=== PATIENT | male | born 1970 | race Caucasian/White ===

== ENCOUNTER 2018-04-06 11:18 | Day surgery (SDC) | payer BC ==
[2018-04-01 09:24] VITALS: BMI 30.5
[~2018-04-06 11:18] MED LIST: LACTATED RINGERS 1,000 ML IV SCH; LIDOCAINE 1% 20 ML VIAL (10MG/ML) FOR IV START INTRADERMA PRN
[2018-04-06 11:59] VITALS: RESP 16; TEMP 98
[2018-04-06] MEDS ORDERED: PROPOFOL 10 MG/ML 20 ML VIAL IV ONE (13:09)
[2018-04-06] MEDS ORDERED: fentaNYL (PF) 50 MCG/ML 2 ML AMP ONE (13:09)
[2018-04-06] MEDS ORDERED: MIDAZOLAM 2 MG/2 ML VIAL ONE (13:09)
--- NOTE | 2018-04-06 13:39 | P.PCN ---
Date of Procedure: 04/06/18 Procedure(s) Performed: Procedure: Total colonoscopy. Preoperative diagnosis: Screening for neoplasia. Postoperative diagnosis: Exam within normal limits. Preparation: HalfLytely prep. Sedation: Was provided by anesthesia. Brief clinical history: The patient is a 47-year-old male who is scheduled for this evaluation for screening for neoplasia age because of family history of neoplastic polyps. His last exam was around 6 years ago. The patient has no abdominal complaints, bleeding or anemia. Procedure: With the patient on his left lateral decubitus position and after informed consent and adequate sedation, the perianal area was inspected and it did not show any fissures or fistulas. There were no masses felt on digital rectal examination. The Olympus CFQ 160L video colonoscope was then inserted in the rectum in the usual fashion and advanced to the cecum. The mucosa appeared healthy. No polyps or tumors were seen or any obvious diverticular disease or other pathology. I retroflexed the endoscope in the rectum before the endoscope was withdrawn. The patient tolerated the procedure well. Plan: The patient was reassured. He will follow up with you as planned and I recommended repeat exam in 5 years.
[2018-04-06 14:12] VITALS: BP 113/76; PULSE 49
== END 2018-04-06 14:28 | disposition home or self-care (01) ==
LOC: ORWHC2ENDO 11:18
DX: Z12.11 Encounter for screening for malignant neoplasm of colon (principal); M19.90 Unspecified osteoarthritis, unspecified site; G47.33 Obstructive sleep apnea (adult) (pediatric); Z79.899 Other long term (current) drug therapy; Z88.0 Allergy status to penicillin; Z88.2 Allergy status to sulfonamides
CPT/HCPCS: J2250; J3010; J2704; G0121; 45378

== ENCOUNTER → 2022-03-06 | Outpatient (CLI) | payer BC ==
--- NOTE | 2022-03-06 15:37 | USB ---
Reason for Exam: Clinical finding. Indicated Problems: Palpable abnormality of the left side. Film Views: Bilateral CC views were taken. Bilateral MLO views were taken. Tissue Density: There are scattered fibroglandular densities. Findings: Analyzed By CAD. Mammogram Parenchymal tissues under the bilateral nipple regions. A marker is placed on the lower inner aspect left breast and a palpable region. No mammographic evidence of malignancy is evident this level. Ultrasound in this region is negative. Technique: Method: Targeted. Findings: The area of palpable concern of the left breast, the axilla of the left breast and the retroareolar of the left breast were scanned. Real-time linear array sonography is performed. No discrete solid or cystic areas evident of the palpable region. Overall Assessment: Probably benign, BI-RAD 3 Assessment: MG 3D diag mammo w/cad BAY - Bilateral: Probably benign, BI-RAD 3. US breast LT - Left: Benign, BI-RAD 2. Management: Diagnostic Mammogram of the left breast in 6 months. Clinical Correlation A clinical breast exam by your physician is recommended on an annual basis and results should be correlated with mammographic findings. Results were given to the patient verbally at the time of exam. Managed on clinical basis. Repeat diagnostic imaging can be performed for changing clinical findings. Electronically signed and approved by: Vijay Panda D.O. Radiologis
== END | disposition home or self-care (01) ==
LOC: RADMAMWWP 14:20
PROVIDERS: ATTEND Family Medicine
DX: R92.8 Other abnormal and inconclusive findings on diagnostic imaging of breast (principal)
CPT/HCPCS: 77062; 77066

== ENCOUNTER → 2023-03-24 | Outpatient (CLI) | payer BC ==
--- NOTE | 2023-03-25 07:25 | CT ---
EXAMINATION TYPE: CT chest w con DATE OF EXAM: 03/24/2023 COMPARISON: None HISTORY: Lung nodule CT DLP: 431.6 mGycm Automated exposure control for dose reduction was used. CONTRAST: CT scan of the chest is performed with IV Contrast, patient injected with 100ml mL of Isovue 300. FINDINGS: LUNGS: There is a densely calcified pulmonary nodule right lower lobe anteriorly measuring 7 mm. No a dditional pulmonary nodules are identified at this time. There is no evidence for infiltrate. No pulm onary masses present. There is no pleural effusion or pneumothorax seen. The tracheobronchial tree i s patent. MEDIASTINUM: There are no greater than 1 cm hilar or mediastinal lymph nodes. No pericardial effusi on is seen. Thoracic aorta is of normal caliber. The heart is not enlarged. UPPER ABDOMEN: No significant abnormality appreciated. OTHER: Bilateral gynecomastia noted. IMPRESSION: 1. Densely calcified right lower lobe pulmonary nodule without concerning nodule or mass identified a t this time.
== END | disposition home or self-care (01) ==
LOC: RADCTMAIN 16:25
PROVIDERS: ATTEND Family Medicine
DX: R91.8 Other nonspecific abnormal finding of lung field (principal)
CPT/HCPCS: 71260; Q9967